=== PATIENT | female | born 1945 | race Caucasian/White ===

== ENCOUNTER 2020-03-11 06:42 | Day surgery (SDC) | payer MEDICARE ==
[2020-03-11] MEDS ORDERED: Sodium Chloride 0.9% 1,000 ML IV SCH (07:15)
[2020-03-11] MEDS ORDERED: Midazolam 1 MG/ML 2 ML SDV ONE (07:23)
[2020-03-11] MEDS ORDERED: Propofol 200 MG/20 ML SDV ONE (07:23)
[2020-03-11] MEDS ORDERED: fentaNYL 100 MCG/2 ML SDV ONE (07:23)
[2020-03-11 09:56] VITALS: BP 96/62; PULSE 56
--- NOTE | 2020-03-11 10:38 | OR ---
DATE OF PROCEDURE: 03/11/2020 SURGEON: Baldo Mccullough MD PROCEDURE: Colonoscopy. FINDINGS: 1. Cecal polyp, approximately 5 mm, completely removed using cold biopsy forceps. 2. Descending colon polyp, approximately 5 mm, completely removed using cold biopsy forceps. PREOPERATIVE DIAGNOSIS: Family history of colorectal cancer. POSTOPERATIVE DIAGNOSIS: Family history of colorectal cancer. RISKS: Risks, benefits, alternatives, and limitations including, but not limited to infection, bleeding, and perforation were explained to the patient, who wished to proceed. PROCEDURE IN DETAIL: The patient was placed in left lateral decubitus position. Digital rectal exam was performed. Scope was introduced and advanced atraumatically to the ileocecal valve. A photo was taken of this. Scope was brought back through the ascending, transverse, descending colon, and retroflexed. The aforementioned polyps were identified and completely removed using cold biopsy forceps. No diverticulosis. No old or new blood. The patient tolerated the procedure well. Baldo Mccullough MD /[id number]
== END 2020-03-11 10:17 | disposition home or self-care (01) ==
LOC: JP.SDS 06:42
PROVIDERS: ATTEND Surgery
DX: Z12.11 Encounter for screening for malignant neoplasm of colon (principal); D12.8 Benign neoplasm of rectum; K21.9 Gastro-esophageal reflux disease without esophagitis; Z80.8 Family history of malignant neoplasm of other organs or systems
CPT/HCPCS: 45380; 88305; J2250; J2704; J3010; J7030

== ENCOUNTER 2022-05-12 06:33 | Day surgery (SDC) | payer MEDICARE ==
[2022-05-12] MEDS ORDERED: Lactated Ringers 1,000 ML IV SCH (07:00)
[2022-05-12] MEDS ORDERED: Propofol 200 MG/20 ML SDV ONE (09:00)
[2022-05-12] MEDS ORDERED: fentaNYL 100 MCG/2 ML SDV ONE (09:00)
[2022-05-12 09:55] VITALS: BP 109/55; PULSE 64
== END 2022-05-12 09:57 | disposition home or self-care (01) ==
LOC: JP.SDS 06:33
PROVIDERS: ATTEND Family Medicine
DX: Z12.11 Encounter for screening for malignant neoplasm of colon (principal); D12.0 Benign neoplasm of cecum; Z80.0 Family history of malignant neoplasm of digestive organs
CPT/HCPCS: 45380; 88305; J2704; J3010; J7120